=== PATIENT | female | born 1990 | race American Indian/Alaskan Native ===

== ENCOUNTER 2018-10-20 18:49 | Emergency (ER) | payer SELFPAY ==
[2018-10-20 23:01] LABS: HCG Qualitative,Urine Negative (Negative)
--- NOTE | 2018-10-21 01:31 | XRay Report ---
FINAL REPORT EXAM: XR CHEST ROUTINE 2V HISTORY: Cough TECHNIQUE: 2 views of the chest. PRIORS: None. FINDINGS: The cardiomediastinal silhouette appears normal. The lungs are clear. The bones and soft tissues are unremarkable. IMPRESSION: No evidence of acute cardiopulmonary disease
--- NOTE | 2018-10-21 02:06 | Emergency Department Report ---
- General Chief Complaint: Upper Respiratory Infection Stated Complaint: COUGHING/CHEST PAIN Time Seen by Provider: 10/20/18 22:05 Source: patient Mode of arrival: Ambulatory Limitations: No Limitations - History of Present Illness Initial Comments: 28-year-old female who is much department having of a 3 week history of non-progressing cough and chest congestion. This worse at night. In the patiently providing scant mucous production but no hemoptysis, hematemesis, no hematochezia. No throat irritation into pain with coughing spells and sometimes some nausea but no vomiting. No diarrhea. No chest pain or palpitation. No(1) MD Complaint: rhinorrhea, nasal congestion Severity: mild Consistency: constant Worsens With: nothing Associated Symptoms: chills, rhinorrhea, nasal congestion, sore throat, cough. denies: abdominal pain, nausea, vomiting, confusion, hoarseness Treatments Prior to Arrival: none - Related Data Previous Rx's Medication Instructions Recorded Last Taken Type Fluticasone Propionate [Flonase] 16 gm NS QDAY #1 spray.susp 12/22/13 Unknown Rx Sulfamethoxazole/Trimethoprim 1 each PO BID #20 tablet 07/04/15 Unknown Rx [Bactrim DS TAB] traMADol [Ultram] 50 mg PO Q6HR PRN #20 tablet 07/04/15 Unknown Rx ALBUTEROL Inhaler (OR & NICU) 1 puff IH Q4-6H PRN #1 inha 10/21/18 Unknown Rx [ProAir HFA Inhaler] guaiFENesin/CODEINE [Robitussin AC] 5 ml PO Q6H PRN #120 ml 10/21/18 Unknown Rx predniSONE [Deltasone] 50 mg PO QDAY #5 tab 10/21/18 Unknown Rx Allergies Allergy/AdvReac Type Severity Reaction Status Date / Time linda Allergy Swelling Uncoded 12/22/13 09:42 pollen Allergy Swelling Uncoded 12/22/13 09:42 seafood Allergy Swelling Uncoded 12/22/13 09:42 ED Review of Systems ROS: Stated complaint: COUGHING/CHEST PAIN Other details as noted in HPI Constitutional: denies: chills, fever Eyes: denies: eye pain, eye discharge, vision change ENT: denies: ear pain, throat pain Respiratory: cough. denies: shortness of breath, wheezing Cardiovascular: denies: chest pain, palpitations Endocrine: no symptoms reported Gastrointestinal: denies: abdominal pain, nausea, diarrhea Genitourinary: denies: urgency, dysuria, discharge Musculoskeletal: denies: back pain, joint swelling, arthralgia Skin: denies: rash, lesions Neurological: denies: headache, weakness, paresthesias Psychiatric: denies: anxiety, depression Hematological/Lymphatic: denies: easy bleeding, easy bruising ED Past Medical Hx - Past Medical History Hx Hypertension: No Hx Congestive Heart Failure: No Hx Diabetes: No Hx Deep Vein Thrombosis: No Hx Renal Disease: No Hx Sickle Cell Disease: No Hx Seizures: No Hx Asthma: Yes Hx COPD: No Hx HIV: No - Social History Smoking Status: Never Smoker Substance Use Type: None - Medications Home Medications: Home Medications Medication Instructions Recorded Confirmed Last Taken Type Fluticasone Propionate [Flonase] 16 gm NS QDAY #1 spray.susp 12/22/13 Unknown Rx Sulfamethoxazole/Trimethoprim 1 each PO BID #20 tablet 07/04/15 Unknown Rx [Bactrim DS TAB] traMADol [Ultram] 50 mg PO Q6HR PRN #20 tablet 07/04/15 Unknown Rx ALBUTEROL Inhaler (OR & NICU) 1 puff IH Q4-6H PRN #1 inha 10/21/18 Unknown Rx [ProAir HFA Inhaler] guaiFENesin/CODEINE [Robitussin AC] 5 ml PO Q6H PRN #120 ml 10/21/18 Unknown Rx predniSONE [Deltasone] 50 mg PO QDAY #5 tab 10/21/18 Unknown Rx ED Physical Exam - General Limitations: No Limitations General appearance: alert, in no apparent distress - Head Head exam: Present: atraumatic, normocephalic - Eye Eye exam: Present: normal appearance, PERRL, EOMI Pupils: Present: normal accommodation - ENT ENT exam: Present: normal orophraynx (exception of mild erythema no exudate, no swelling. Uvula midline. No drooling), mucous membranes moist, normal external ear exam, other (nasal congestion bilaterally with some clear discharge. Posterior pharynx is clear. .) - Neck Neck exam: Present: normal inspection, full ROM - Respiratory Respiratory exam: Present: normal lung sounds bilaterally. Absent: respiratory distress, wheezes, rales, rhonchi, accessory muscle use - Cardiovascular Cardiovascular Exam: Present: regular rate, normal rhythm. Absent: systolic murmur, diastolic murmur, rubs, gallop - GI/Abdominal GI/Abdominal exam: Present: soft, normal bowel sounds. Absent: distended, tenderness, guarding - Extremities Exam Extremities exam: Present: normal inspection - Back Exam Back exam: Present: normal inspection. Absent: CVA tenderness (R), CVA tenderness (L), muscle spasm, paraspinal tenderness - Neurological Exam Neurological exam: Present: alert, oriented X3, CN II-XII intact, normal gait - Psychiatric Psychiatric exam: Present: normal affect, normal mood - Skin Skin exam: Present: warm, dry, intact, normal color. Absent: rash ED Course Vital Signs 10/20/18 19:02 Temperature 99.1 F Pulse Rate 80 Respiratory 18 Rate Blood Pressure 112/87 O2 Sat by Pulse 98 Oximetry Critical care attestation.: If time is entered above; I have spent that time in minutes in the direct care of this critically ill patient, excluding procedure time. ED Disposition Clinical Impression: URI (upper respiratory infection), Cough Disposition: - TO HOME OR SELFCARE Is pt being admited?: No Does the pt Need Aspirin: No Condition: Stable Instructions: Dextromethorphan (By mouth), Cold Symptoms (ED), Acute Cough (ED), Upper Respiratory Infection (ED) Referrals: [facility] [Provider Group] - 3-5 Days 1: No fevers or sweats. No rashes.
[2018-10-21 03:17] VITALS: BP 110/68
== END 2018-10-21 03:17 | disposition home or self-care (01) ==
LOC: ED 18:49
DX: J06.9 Acute upper respiratory infection, unspecified (principal); J45.909 Unspecified asthma, uncomplicated; Z91.013 Allergy to seafood; Z91.018 Allergy to other foods
CPT/HCPCS: 71046; 81025

== ENCOUNTER 2019-06-11 21:36 | Outpatient (CLI) | payer MEDICAID ==
[2019-06-11] MEDS ORDERED: LACTATED RINGERS 500 ML IV ONE (23:46)
[2019-06-11] MEDS ORDERED: TYLENOL PO ONE (23:51)
[2019-06-12 00:12] LABS: Hemoglobin 11.7 gm/dl (10.1-14.3); Mean Corpuscular HGB Conc 35 % (30-34); Mean Corpuscular Volume 91 fl (79-97); Platelet Count 261 K/mm3 (140-440); Red Blood Count 3.72 M/mm3 (3.65-5.03); Red Cell Distribution Width 13.7 % (13.2-15.2)
== END 2019-06-12 01:00 | disposition home or self-care (01) ==
LOC: TRG 21:36
PROVIDERS: ATTEND Obstetrics & Gynecology
DX: O47.02 False labor before 37 completed weeks of gestation, second trimester (principal); Z3A.23 23 weeks gestation of pregnancy
CPT/HCPCS: 36415; 85027

== ENCOUNTER 2019-08-03 18:45 | Outpatient (CLI) | payer MEDICAID ==
[2019-08-03] MEDS ORDERED: LACTATED RINGERS 1,000 ML IV ONE (20:38)
[2019-08-03 20:57] LABS: Bilirubin,Urine NEG (Negative); Blood,Urine NEG (Negative); Color,Urine Straw (Yellow); Protein,Urine <15 mg/dL mg/dL (Negative); Urobilinogen,Urine < 2.0 mg/dL (<2.0)
[2019-08-03] MEDS ORDERED: TERBUTALINE 1 MG/1 ML INJ SUB-Q ONE ×2 (21:25→22:23)
[2019-08-03] MEDS ORDERED: TERBUTALINE 1 MG/1 ML INJ ONE (21:29)
[2019-08-03] MEDS ORDERED: cefTRIAXone/NS 1 GM/50 ML 1 GM/50 ML BAG IV ONE (21:48)
[2019-08-03] MEDS ORDERED: LACTATED RINGERS 1,000 ML IV SCH (22:00)
[2019-08-03 23:12] VITALS: BP 112/57
== END 2019-08-04 | disposition home or self-care (01) ==
LOC: TRG 18:45
PROVIDERS: ATTEND Obstetrics & Gynecology
DX: O26.893 Other specified pregnancy related conditions, third trimester (principal); R10.2 Pelvic and perineal pain; M54.5 Low back pain; O47.03 False labor before 37 completed weeks of gestation, third trimester; Z3A.31 31 weeks gestation of pregnancy; Z87.891 Personal history of nicotine dependence
CPT/HCPCS: 36415; 59025; 81001; 82731; 96361; 96365; 96372; J0696; J3105; J7120; 96360

== ENCOUNTER 2019-09-14 07:30 | Inpatient (IN) | payer MEDICAID ==
--- NOTE | 2019-09-27 10:08 | Anesthesia Consultation ---
Anesthesia Consult and Med Hx Date of service: 09/27/19 - Airway Anesthetic Teeth Evaluation: Good ROM Head & Neck: Adequate Mental/Hyoid Distance: Adequate Mallampati Class: Class II Intubation Access Assessment: Good - Pulmonary Exam CTA: Yes - Cardiac Exam Cardiac Exam: RRR - Pre-Operative Health Status ASA Pre-Surgery Classification: ASA2 Proposed Anesthetic Plan: Spinal - Pulmonary Hx Asthma: No COPD: No Hx Pneumonia: No - Cardiovascular System Hx Hypertension: No - Central Nervous System Hx Seizures: No Hx Psychiatric Problems: No - Endocrine Hx Renal Disease: No Hx End Stage Renal Disease: No Hx Hypothyroidism: No Hx Hyperthyroidism: No - Hematic Hx Anemia: No Hx Sickle Cell Disease: No - Other Systems Hx Alcohol Use: No
--- NOTE | 2019-09-27 10:08 | Anesthesia Day of Surgery ---
Anesthesia Day of Surgery - Day of Surgery Patient Examined: Yes Patient H&P Reviewed: Yes Patient is NPO: Yes
[2019-09-27] MEDS ORDERED: LIDOCAINE (2%) 20 MG/1 ML VIAL 20 ML MDV INFILTRATI ONE (10:22)
[2019-09-27] MEDS ORDERED: ePHEDrine SULFATE 50 MG/1 ML INJ IV PRN (10:22)
[2019-09-27] MEDS ORDERED: TERBUTALINE 1 MG/1 ML INJ SUB-Q PRN (10:22)
[2019-09-27] MEDS ORDERED: METOCLOPRAMIDE 10 MG/2 ML INJ IV ONE (10:22)
[2019-09-27] MEDS ORDERED: MINERAL OIL 30 ML ORAL LIQD PO PRN (10:22)
[2019-09-27] MEDS ORDERED: BICITRA ORAL LIQD 30ML PO SCH (10:22)
[2019-09-27] MEDS ORDERED: OXYTOCIN 20 UNIT/1000ML DRIP 20 UNITS/1,000 ML BAG IV SCH ×3 (11:00→15:00)
[2019-09-27] MEDS ORDERED: LACTATED RINGERS 1,000 ML IV SCH ×2 (11:00)
[2019-09-27] MEDS ORDERED: ceFAZolin/Water 2 GM/20 ML 2 GM/20 ML SYRINGE IV ONE (11:14)
[2019-09-27] MEDS ORDERED: FAMOTIDINE 20 MG/2 ML INJ IV ONE (11:22)
[2019-09-27] MEDS ORDERED: WATER FOR IRRIG STERILE 1,500 ML BOTTLE IR ONE (11:38)
[2019-09-27] MEDS ORDERED: SODIUM CHLORIDE 0.9% IRR 1,500 ML BOTTLE IR ONE (11:38)
--- NOTE | 2019-09-27 11:45 | History and Physical Report ---
History of Present Illness Date of examination: 09/27/19 Date of admission: 09/27/19 09:27 Chief complaint: Repeat csec at 39 weeks History of present illness: This is a 29 yo G P at 39 weeks here for repeat . Past History Past Medical History: no pertinent history Past Surgical History: section Family/Genetic History: none Social history: no significant social history, single. denies: smoking, alcohol abuse, IV drug use - Obstetrical History Expected Date of Delivery: 10/03/19 Actual Gestation: 39 Week(s) 1 Day(s) : 3 Para: 1 Hx # Term Pregnancies: 1 Number of Pregnancies: 0 Spontaneous Abortions: 1 Induced : 0 Number of Living Children: 1 Medications and Allergies Allergies Allergy/AdvReac Type Severity Reaction Status Date / Time linda Allergy Swelling Uncoded 09/27/19 10:30 pollen Allergy Swelling Uncoded 09/27/19 10:30 seafood Allergy Swelling Uncoded 09/27/19 10:30 Active Meds: Active Medications Citric Acid/Sodium Citrate (Bicitra) 30 ml PO ONCE MARITZA Stop: 09/27/19 23:00 Last Admin: 09/27/19 11:27 Dose: 30 ml Documented by: Ephedrine Sulfate (Ephedrine Sulfate) 10 mg IV Q2M PRN PRN Reason: Hypotension Oxytocin/Sodium Chloride (Pitocin/Ns 20 Unit/1000ml Drip) 20 units in 1,000 mls @ 125 mls/hr IV DIRECT MARITZA Lactated Ringer's (Lactated Ringers) 1,000 mls @ 125 mls/hr IV DIRECT MARITZA Oxytocin/Sodium Chloride (Pitocin/Ns 20 Unit/1000ml Drip) 20 units in 1,000 mls @ 0 mls/hr IV TITR MARITZA Lactated Ringer's (Lactated Ringers) 1,000 mls @ 2,250 mls/hr IV PREOP MARITZA Stop: 09/28/19 11:27 Last Admin: 09/27/19 11:31 Dose: 2,250 mls/hr Documented by: Cefazolin Sodium 3 gm/ Sodium (Chloride) 100 mls @ 100 mls/30 min IV PREOP NR; Protocol Stop: 09/27/19 23:00 Mineral Oil (Mineral Oil) 30 ml PO QHS PRN PRN Reason: Constipation Terbutaline Sulfate (Brethine) 0.25 mg SUB-Q ONCE PRN PRN Reason: Hyperstimulation/Hypertonicity Review of Systems All systems: negative - Vital Signs Vital signs: Vital Signs Pulse BP 81 109/63 09/27/19 10:10 09/27/19 10:10 Temp Pulse Resp BP Pulse Ox 98.2 F 81 109/63 09/27/19 10:21 09/27/19 10:10 09/27/19 10:10 - Physical Exam Breasts: Positive: normal Cardiovascular: Regular rate, Normal S1 Lungs: Positive: Clear to auscultation, Normal air movement Abdomen: Positive: normal appearance, soft, normal bowel sounds. Negative: distention, tenderness, guarding Genitourinary (Female): Positive: normal external genitalia, normal perenium Vagina: Positive: normal moisture Uterus: Positive: normal size Anus/Rectum: Positive: normal perianal skin Extremities: Positive: normal Deep Tendon Reflex Grade: Normal +2 - Obstetrical FHR: category 1 Results Result Diagrams: 09/27/19 10:15 All other labs normal. Assessment and Plan A/P IUP 39 weeks Termn hx of repeat -desires repeat discussed r/b/a of csec which include but not limited to bleeding infection damage to pelvic and non pelvic organs risk of hsyterectomy, blood clots and Patient had all questions answered and will proceed with repeat csec
[2019-09-27 11:52] LABS: Basophils % (Auto) 0.2 % (0.0-1.8); Eosinophils % (Auto) 0.5 % (0.0-4.3); Hematocrit 32.8 % (30.3-42.9); Hemoglobin 10.9 gm/dl (10.1-14.3); Lymphocytes # (Auto) 1.5 K/mm3 (1.2-5.4); Lymphocytes % (Auto) 25.7 % (13.4-35.0); Mean Corpuscular HGB Conc 33 % (30-34); Mean Corpuscular Volume 84 fl (79-97); Monocytes # (Auto) 0.4 K/mm3 (0.0-0.8); Monocytes % (Auto) 7.5 % (0.0-7.3); Platelet Count 237 K/mm3 (140-440); Red Blood Count 3.88 M/mm3 (3.65-5.03); Red Cell Distribution Width 15.6 % (13.2-15.2)
[2019-09-27] MEDS ORDERED: KETOROLAC 30 MG/1 ML INJ ONE (12:24)
[2019-09-27] MEDS ORDERED: BUPIVACAINE /DEX-WATER 0.75% (2 ML) AMPULE INFILTRATI ONE (12:24)
[2019-09-27] MEDS ORDERED: ONDANSETRON 4 MG/2 ML INJ ONE (12:24)
[2019-09-27] MEDS ORDERED: DEXMEDETOMIDINE 200 MCG/2 ML VIAL IV ONE (12:24)
--- NOTE | 2019-09-27 12:47 | Procedure Note ---
OB Delivery Note - Delivery Date of Delivery: 09/27/19 Surgeon: CALEB CLARK Estimated blood loss: 500cc - Section Preop diagnosis: repeat Postop diagnosis: same section procedure: section Disposition: PACU Complications: none - A at 1 minute: 8 at 5 minutes: 9 Infant Gender: Female (7 pounds)
--- NOTE | 2019-09-27 12:51 | Operative Report ---
Operative Report Operative Report: DATE OF OPERATION: 09/27/19 PREOPERATIVE DIAGNOSES: 1. Prior section. 2. Declines vaginal after . 3. A 39 weeks gestation. POSTOPERATIVE DIAGNOSES: 1. Prior section. 2. Declines vaginal after . 3. A 39 weeks gestation. OPERATION PERFORMED: Repeat low transverse . SURGEON: Pati Hinojosa MD ANESTHESIA: Spinal. ESTIMATED BLOOD LOSS: 500 mL. FINDINGS: A viable female weighing 7 pounds Apgars 8 and 9 COMPLICATIONS: None. DISPOSITION: Stable. DESCRIPTION OF OPERATION: After informed consent was obtained, the patient was brought back to the operative suite where adequate spinal anesthesia was obtained. The patient was then placed in the dorsal supine position and prepped and draped in the sterile fashion. A repeat Pfannenstiel skin incision was made with a blade and carried down through the subcutaneous tissues to the fascia, which was extended in the transverse fascia with Pisano scissors. The fascial incision was then dissected off the rectus muscles both bluntly and sharply. The rectus muscle was in the midline. The peritoneum was entered bluntly. The peritoneal incision was then extended both superiorly and inferiorly with good visualization of the underlying bowel and bladder. The bladder blade was placed, and the vesicouterine fascia was incised to create a bladder flap in a low transverse position. This was developed digitally. A low transverse uterine incision was made with the blade and carried down through the layers of the uterus until membranes bulged through the incision. The uterine incision was then extended digitally. Hand was placed inside the pelvis, and the head was brought up out of the pelvis and delivered atraumatically with gentle fundal pressure. Prior to the head being delivered, actually through the skin, the sound of the baby starting to cry was noted. After the head was delivered, the mouth and nares were aggressively bulb suctioned. Remainder of the was delivered, and the was passed to the awaiting nursing staff for additional care. Cord was doubly clamped and cut and cord blood was obtained. The placenta was then manually extracted, and the uterus was exteriorized. The uterus was cleaned of remaining clot. The uterine incision was readily identified and closed in two layers, first one with running locking followed by second imbricating layer of 0 Vicryl. The vesicouterine fascia was then reapproximated with 2-0 Vicryl. The adnexa were within normal limits. The uterus was placed back inside the pelvis. Copious irrigation and inspection of the incision was satisfactory. The peritoneum was then closed with 2-0 Vicryl in a running fashion. The fascia was closed with 1 PDS from one angle to the next. Subcutaneous tissues were copiously irrigated, and final bleeders were cauterized. The incision was then reapproximated with Matt needle a standard fashion.
[2019-09-27] MEDS ORDERED: PHENYLEPHRINE/NS 1,000 MCG/10 ML SYRINGE (OR USE) IV ONE (13:00)
--- NOTE | 2019-09-27 13:08 | Post Anesthesia Evaluation ---
- Post Anesthesia Evaluation Patient Participated: Yes Airway Patent: Yes Stable Respiratory Function: Yes Nausea/Vomiting: No Temp > 96.8F: Yes Pain Manageable: Yes Adequeate Hydration: Yes Anesthesia Complications: No Block Receding Appropriately: Yes Patient on Ventilator: No
[2019-09-27] MEDS ORDERED: ONDANSETRON 4 MG/2 ML INJ IV PRN (14:53)
[2019-09-27] MEDS ORDERED: HYDROmorphone 1 MG/1 ML INJ IV PRN (14:53)
[2019-09-27] MEDS ORDERED: NALOXONE 0.4 MG/1 ML INJ IV PRN ×2 (14:53→14:54)
[2019-09-27] MEDS ORDERED: PROMETHAZINE 25 MG TAB PO PRN (14:53)
[2019-09-27] MEDS ORDERED: PROMETHAZINE 25 MG RECT SUPP PR PRN (14:53)
[2019-09-27] MEDS ORDERED: WITCH HAZEL/ GLYCERIN PAD TP PRN (14:54)
[2019-09-27] MEDS ORDERED: LANOLIN/ZINC/DIMETHICONE (LANSINOH) 7 GM TP PRN (14:54)
[2019-09-27] MEDS ORDERED: fentaNYL-BUPIV 2 MCG/ML-0.125% 200 MCG/100 ML BAG EPIDURAL SCH (15:00)
[2019-09-27] MEDS: HYDROmorphone 1 MG/1 ML INJ IV PRN ×2 (15:49→19:43)
[2019-09-27] MEDS ORDERED: MAGNESIUM HYDROXIDE (MOM) ORAL LIQD UDC PO PRN (19:55)
[2019-09-27] MEDS ORDERED: diphenhydrAMINE 25 MG CAP PO PRN (19:57)
[2019-09-27] MEDS: KETOROLAC 30 MG/1 ML INJ IV PRN (21:02)
[2019-09-28] MEDS: oxyCODONE /ACETAMINOPHEN 5-325MG TAB PO PRN ×4 (01:19→23:08)
[2019-09-28] MEDS: KETOROLAC 30 MG/1 ML INJ IV PRN (04:27)
[2019-09-28] MEDS ORDERED: TETANUS,DIPH,PERTUSS(ACELL) VACCINE 0.5 ML SYRINGE IM ONE (06:00)
[2019-09-28 06:12] LABS: Hematocrit 26.8 % (30.3-42.9); Hemoglobin 8.9 gm/dl (10.1-14.3)
[2019-09-28] MEDS: FERROUS SULFATE 325 MG TAB PO SCH (11:26)
[2019-09-28] MEDS: IBUPROFEN 800 MG TAB PO PRN ×2 (13:35→20:58)
--- NOTE | 2019-09-28 13:43 | Progress Note ---
Assessment and Plan POD1 s/p repeat LTCS Passing flatus Acute anemia- ferrous sulfate Vital signs stable Continue current care. Discharge to home on POD2 or POD3 Subjective - Subjective Date of service: 09/28/19 Principal diagnosis: s/p repeat c/s Interval history: Pt is POD1 s/p repeat LTCS Patient reports: appetite normal, voiding normally, pain well controlled, flatus, ambulating normally : doing well, nursing well Objective - Vital Signs Latest vital signs: Vital Signs Temp Pulse Resp BP BP Pulse Ox 09/28/19 10:08 98.3 F 76 18 109/65 09/28/19 08:53 76 99 09/28/19 05:20 98.3 F 74 20 112/67 98 09/28/19 04:27 18 09/28/19 01:19 18 09/28/19 01:05 98.1 F 76 20 108/65 98 09/27/19 21:08 98.0 F 72 20 114/72 99 09/27/19 21:02 18 09/27/19 19:43 18 09/27/19 14:00 61 14 105/40 98 09/27/19 13:45 69 15 103/46 98 Intake and Output 09/27/19 09/28/19 09/28/19 23:59 07:59 15:59 Intake Total 120 Output Total 500 850 Balance -380 -850 Intake: Oral 120 Output: Urine 500 850 Void 500 850 Other: Total, Intake Amount 120 Total, Output Amount 500 400 - Exam Lungs: Present: Normal air movement Abdomen: Present: soft Uterus: Present: firm, fundal height below umbilicus Extremities: Present: normal Incision: Present: dressed - Labs Labs: Abnormal lab results 09/28/19 Range/Units 05:45 Hgb 8.9 L (10.1-14.3) gm/dl Hct 26.8 L D (30.3-42.9) %
[2019-09-29] MEDS: IBUPROFEN 800 MG TAB PO PRN ×3 (03:22→22:01)
[2019-09-29] MEDS: oxyCODONE /ACETAMINOPHEN 5-325MG TAB PO PRN ×2 (05:13→19:55)
--- NOTE | 2019-09-29 08:30 | Progress Note ---
Assessment and Plan - Patient Problems (1) S/P repeat low transverse Current Visit: Yes Status: Acute Plan to address problem: continue to monitor symptoms discharge if patient remains stable Subjective - Subjective Date of service: 09/29/19 Principal diagnosis: s/p repeat c/s Interval history: Patient reports yesterday having a few episodes of feeling lightheaded. She denies any symptoms today. Tolerating regular diet Patient reports: appetite normal, voiding normally, pain well controlled : doing well Objective - Vital Signs Latest vital signs: Vital Signs Temp Pulse Resp BP BP Pulse Ox 09/29/19 07:54 98.6 F 73 18 106/50 09/29/19 05:13 18 09/29/19 03:22 18 09/29/19 00:53 98.2 F 75 20 97/56 100 09/28/19 23:08 18 09/28/19 20:58 18 09/28/19 17:52 98.2 F 71 18 104/56 100 09/28/19 14:10 98.4 F 88 18 107/78 100 09/28/19 10:08 98.3 F 76 18 109/65 09/28/19 08:53 76 99 Intake and Output 09/28/19 09/29/19 09/29/19 22:59 06:59 14:59 Intake Total 241 480 Balance 241 480 Intake: Oral 241 480 Other: Total, Intake Amount 241 480 # Voids Void 1 1 - Exam Uterus: Present: normal Incision: Present: dressed
--- NOTE | 2019-09-29 08:32 | Discharge Summary ---
Providers - Providers Date of Admission: 09/27/19 09:27 Date of discharge: 09/29/19 Attending physician: CALEB CLARK MD Primary care physician: CALEB CLARK MD Hospitalization Reason for admission: section Delivery: Procedure: section, repeat low transverse Discharge diagnosis: IUP at term delivered Hospital course: Patient admitted for RLTCS. See op note. Postop unremarkable Condition at discharge: Good Disposition: DC-01 TO HOME OR SELFCARE - Discharge Diagnoses (1) S/P repeat low transverse Status: Acute Plan - Discharge Medications Prescriptions: Docusate Sodium [Colace] 100 mg PO BID PRN #60 capsule PRN Reason: Constipation Ibuprofen [Motrin] 800 mg PO Q8HR PRN #60 tablet PRN Reason: Pain, Mild (1-3) oxyCODONE /ACETAMINOPHEN [Percocet 5/325] 1 tab PO Q6HR PRN #30 tablet PRN Reason: Pain - Provider Discharge Summary Activity: no sex for 6 weeks, no heavy lifting 4 weeks, no strenuous exercise Diet: routine Instructions: routine Additional instructions: [] Smoking cessation referral if applicable(refer to patient education folder for contact #) [] Refer to [facility] [place] [facility] Book[facility] Call your doctor immediately for: * Fever > 100.5 * Heavy vaginal bleeding ( >1 pad per hour) * Severe persistent headache * Shortness of breath * Reddened, hot, painful area to leg or breast * Drainage or odor from incision. * Keep incision clean and dry at all times and follow doctor's instructions regarding bathing/showering schedule incision check in 2 weeks - Follow up plan
[2019-09-29] MEDS: FERROUS SULFATE 325 MG TAB PO SCH (12:45)
[2019-09-29] MEDS ORDERED: BACITRACIN ZINC OINT 28.4 GM TP PRN (15:48)
[2019-09-30] MEDS: oxyCODONE /ACETAMINOPHEN 5-325MG TAB PO PRN ×2 (01:00→11:34)
[2019-09-30] MEDS: IBUPROFEN 800 MG TAB PO PRN (03:33)
[2019-09-30] MEDS: FERROUS SULFATE 325 MG TAB PO SCH (10:10)
[2019-09-30 12:56] VITALS: BP 110/57
== END 2019-09-30 14:28 | disposition home or self-care (01) | DRG 765 ==
LOC: APU 09-27 09:27 → OB 09-27 14:36
PROVIDERS: ADMIT Obstetrics & Gynecology; ATTEND Obstetrics & Gynecology
PROC: 10D00Z1 Extraction of Products of Conception, Low, Open Approach (ICD-10-PCS; principal; 2019-09-27)
PROC: 3E0234Z Introduction of Serum, Toxoid and Vaccine into Muscle, Percutaneous Approach (ICD-10-PCS; 2019-09-28)
DX: O34.211 Maternal care for low transverse scar from previous cesarean delivery (principal); D62 Acute posthemorrhagic anemia; Z3A.39 39 weeks gestation of pregnancy; Z37.0 Single live birth; Z23 Encounter for immunization; Z91.013 Allergy to seafood; Z91.018 Allergy to other foods; O90.81 Anemia of the puerperium
CPT/HCPCS: 36415; 85014; 85018; 85025; 86850; 86900; 86901; G0378; A6250; C1765; J0690; J1170; J1885; J2370; J2405; J2590; J2765; J3490; J7120

== ENCOUNTER 2019-09-20 15:56 | Outpatient (CLI) | payer MEDICAID ==
[2019-09-20 16:32] VITALS: BP 119/73
[2019-09-20] MEDS ORDERED: LACTATED RINGERS 1,000 ML ONE ×2 (16:50→17:54)
== END 2019-09-20 19:14 | disposition home or self-care (01) ==
LOC: TRG 15:56
PROVIDERS: ATTEND Obstetrics & Gynecology
DX: O47.1 False labor at or after 37 completed weeks of gestation (principal); Z3A.38 38 weeks gestation of pregnancy
CPT/HCPCS: 96360; 96361; J7120

== ENCOUNTER 2021-11-13 11:33 | Emergency (ER) | payer MEDICAID ==
--- NOTE | 2021-11-13 21:00 | XRay Report ---
LEFT ANKLE 3 VIEWS INDICATION / CLINICAL INFORMATION: Left ankle injury while skating yesterday with associated pain and swelling. COMPARISON: None available. FINDINGS: BONES and JOINT(S): No acute fracture or subluxation. No significant arthritis. SOFT TISSUES: There is mild/moderate generalized edema, most notable laterally. No other significant abnormality. ADDITIONAL FINDINGS: None. IMPRESSION: Left ankle edema without other acute findings. Signer Name: Myke Jo MD Signed: 11/13/2021 8:56 PM Workstation Name: [id number]
--- NOTE | 2021-11-13 21:31 | Emergency Department Report ---
HPI - General Chief Complaint: Extremity Injury, Lower Time Seen by Provider: 11/13/21 21:25 - HPI HPI: 31-year-old -[place] female presents to the emergency department with complaint of left ankle pain and swelling after a fall while rollerskating 8 days ago. She says that she was trying to keep her son from falling and her foot got bent back behind her, and then somebody fell on top of it. For a while the patient was having difficulty with bearing weight or any ambulation but says that she is just gotten to the point where she has been able to stand and ambulate with a limp. She denies any past medical history. Currently she says the ankle pain is 6 out of 10 in intensity and worsens with bearing weight and ambulation. ED Past Medical Hx - Past Medical History Hx Hypertension: No Hx Congestive Heart Failure: No Hx Diabetes: No Hx Deep Vein Thrombosis: No Hx Renal Disease: No Hx Sickle Cell Disease: No Hx Seizures: No Hx Asthma: No Hx COPD: No Hx HIV: No - Social History Smoking Status: Never Smoker - Medications Home Medications: Home Medications Medication Instructions Recorded Confirmed Last Taken Type oxyCODONE /ACETAMINOPHEN [Percocet 1 tab PO Q6HR PRN #30 tablet 09/27/19 Unknown Rx 5/325] Docusate Sodium [Colace] 100 mg PO BID PRN #60 capsule 09/29/19 Unknown Rx Ibuprofen [Motrin 800 MG tab] 800 mg PO Q8HR PRN #20 tablet 11/13/21 Unknown Rx ED Review of Systems ROS: Stated complaint: ANKLE PAIN Other details as noted in HPI Comment: All other systems reviewed and negative Cardiovascular: edema (Left ankle) Musculoskeletal: joint swelling (Left ankle), arthralgia (Left ankle) Skin: other (Bruising). denies: rash Physical Exam - Physical Exam Vital Signs: Vital Signs 11/13/21 16:25 Temperature 98.1 F Pulse Rate 76 Respiratory 20 Rate Blood Pressure 127/51 O2 Sat by Pulse 99 Oximetry Physical Exam: GENERAL: The patient is well-developed well-nourished. HENT: Normocephalic. Atraumatic. Patient has moist mucous membranes. EYES: Extraocular motions are intact. NECK: Supple. Trachea is midline. ABDOMEN: There is no abdominal distention. SKIN: Skin is warm and dry. Nonpitting swelling of the left ankle. Mild ecchymosis. NEURO: The patient is awake, alert, and oriented. The patient is cooperative. The patient has no focal neurologic deficits. Normal speech. MUSCULOSKELETAL: There is tenderness to palpation to the circumferential left ankle. There is some restriction to eversion of the left ankle. Dorsalis pedis pulse +2/4 and capillary refill less than 2 seconds to the affected left lower extremity. ED Course Vital Signs 11/13/21 16:25 Temperature 98.1 F Pulse Rate 76 Respiratory 20 Rate Blood Pressure 127/51 O2 Sat by Pulse 99 Oximetry ED Medical Decision Making - Radiology Data Radiology results: image reviewed interpreted by me: X-ray of the left ankle does not show any fracture, dislocation, or any acute process. There is some soft tissue swelling. - Medical Decision Making This patient presents with left ankle pain and swelling after her ankle was bent back and someone fell on top of her 8 days ago. On examination she has neurovascular intact. There is some mild swelling and bruising. There is some slight decreased range of motion with ankle eversion. X-ray does not show any fracture, dislocation, or any acute process. She has been placed in an Daryl wrap and given outpatient referral for a an orthopedist and dry man. Critical Care Time: No Critical care attestation.: If time is entered above; I have spent that time in minutes in the direct care of this critically ill patient, excluding procedure time. ED Disposition Clinical Impression: Left ankle sprain Qualifiers: Encounter type: initial encounter Involved ligament of ankle: unspecified ligament Qualified Code(s): S93.402A - Sprain of unspecified ligament of left ankle, initial encounter Disposition: HOME / SELF CARE / HOMELESS Is pt being admited?: No Condition: Stable Instructions: Ankle Sprain, Elastic Bandage and RICE Therapy Additional Instructions: I am giving you a referral for a local orthopedist, Dr. Mosley, and a dry man, Dr. Spann, to follow-up regarding your left ankle pain and swelling and suspected ankle sprain. Return to the emergency department with any worsening of your symptoms, new or concerning symptoms not addressed during this current emergency department visit, or with any acute distress. Prescriptions: Ibuprofen [Motrin 800 MG tab] 800 mg PO Q8HR PRN #20 tablet PRN Reason: Pain , Severe (7-10) Referrals: ERYN MOSLEY MD [Staff Physician] - 3-5 Days CARLOS SPANN DPM [Staff Physician] - 3-5 Days Forms: Work/School Release Form(ED) Time of Disposition: 21:31
[2021-11-13 22:13] VITALS: BP 122/69
== END 2021-11-13 22:20 | disposition home or self-care (01) ==
LOC: ED 11:33
DX: S93.402A Sprain of unspecified ligament of left ankle, initial encounter (principal); V00.121A Fall from non-in-line roller-skates, initial encounter; Y93.89 Activity, other specified; Y92.89 Other specified places as the place of occurrence of the external cause; Y99.8 Other external cause status
CPT/HCPCS: 99283

== ENCOUNTER 2022-07-04 21:03 | Emergency (ER) | payer MEDICAID | END 2022-07-05 06:17 | LOC: ED 21:03 | DX: R07.9 Chest pain, unspecified (principal); Z53.21 Procedure and treatment not carried out due to patient leaving prior to being seen by health care provider ==